=== PATIENT | male | born 1945 ===

== ENCOUNTER → 2023-09-03 10:08 | Outpatient (REF) | payer MEDICARE, BC, SELFPAY | LOC: WOUND 10:08 | PROVIDERS: ATTENDING PHYSICIAN Surgery | DX: T21.22XA Burn of second degree of abdominal wall, initial encounter (principal); I10 Essential (primary) hypertension; X12.XXXA Contact with other hot fluids, initial encounter; Y93.G3 Activity, cooking and baking | CPT/HCPCS: 99213 ==

== ENCOUNTER → 2023-09-10 10:20 | Outpatient (REF) | payer MEDICARE, BC, SELFPAY | LOC: WOUND 10:20 | PROVIDERS: ATTENDING PHYSICIAN Surgery | DX: T21.22XA Burn of second degree of abdominal wall, initial encounter (principal); I10 Essential (primary) hypertension; X12.XXXA Contact with other hot fluids, initial encounter | CPT/HCPCS: 99212 ==